=== PATIENT | female | born 1930 | race Caucasian/White ===

== ENCOUNTER 2017-05-24 12:33 | Emergency (ER) | payer OTHER, BC ==
[~2017-05-24] VITALS: Ht 162.6 cm; Wt 77.1 kg
[2017-05-24] MEDS ORDERED: COZAAR 25 MG TA25 M1 PO (13:05)
[2017-05-24] MEDS ORDERED: LOVASTATIN 20 M20 MG PO (13:05)
[2017-05-24] MEDS ORDERED: CLONIDINE HCL0.2 M2 PO (13:05)
[2017-05-24 13:55] LABS: ABSOLUTE EOSINOPHILS 0.1 thou/uL (0.0-0.7); ABSOLUTE MONOCYTES 0.8 thou/uL (0.0-1.2); ABSOLUTE NEUTROPHILS 6.1 thou/uL (1.6-8.1); BASOPHILS 0.3 %; EOSINOPHILS 0.8 %; HEMATOCRIT 34.9 % (37.0-47.0); HEMOGLOBIN 12.2 gm/dL (12.0-15.0); LYMPHOCYTES 12.9 %; MCH 34.8 pg (26.0-34.0); MCHC 34.8 g/dL (28.0-37.0); MCV 99.9 fL (80.0-100.0); MONOCYTES 10.1 %; MPV 8.9 fl. (7.2-11.1); NUCLEATED RBCS 0 /100WBC; PLATELET COUNT* 168 thou/uL (150-400); POLYS 75.9 %; RDW-CV 13.3 % (10.5-14.5)
[2017-05-24 14:32] VITALS: BP 154/58
[2017-05-24 15:02] LABS: ESR (SEDRATE) 38 mm/hr (0-30)
== END 2017-05-24 14:48 | disposition home or self-care (01) ==
LOC: M.ERS 12:33
PROVIDERS: Nurse Practitioner Family
DX: M25.572 Pain in left ankle and joints of left foot (principal); I10 Essential (primary) hypertension; Z96.641 Presence of right artificial hip joint; Z96.651 Presence of right artificial knee joint

== ENCOUNTER 2019-06-24 15:31 | Emergency (ER) | payer OTHER ==
[~2019-06-24] VITALS: Ht 160 cm; Wt 81.7 kg
[~2019-06-24 15:31] MED LIST: CLONIDINE HCL0.2 M2 PO; COZAAR 25 MG TA25 M1 PO; LOVASTATIN 20 M20 MG PO
[2019-06-24 17:45] LABS: URINE BILIRUBIN NEGATIVE (Negative); URINE BLOOD TRACE (Negative); URINE COLOR YELLOW; URINE GLUCOSE-RANDOM NEGATIVE (Negative); URINE KETONES NEGATIVE (Negative); URINE LEUKOCYTES-REFLEX TRACE (Negative); URINE NITRITE-REFLEX NEGATIVE (Negative); URINE PROTEIN NEGATIVE (Negative); URINE SPECIFIC GRAVITY 1.015 (1.005-1.030); URINE UROBILINOGEN 0.2 E.U./dl (0.2-1.0)
[2019-06-24 17:47] LABS: URINE CLARITY HAZY
[2019-06-24 17:53] LABS: BACTERIA-REFLEX >30 Many /HPF (None Seen); CASTS None Seen /LPF (None Seen); SQUAMOUS 4-10 Moderate /LPF (0-3); URINE RBC 0-2 Rare /HPF (0-2); URINE WBC-REFLEX 6-15 Few /HPF (0-5)
[2019-06-24 17:54] LABS: CRYSTALS None Seen /LPF (None Seen)
[2019-06-24] MEDS ORDERED: KEFLEX250 M1 PO (18:05)
[2019-06-24 18:14] VITALS: BP 146/84
== END 2019-06-24 18:15 | disposition home or self-care (01) ==
LOC: M.ERS 15:31
PROVIDERS: Physician Assistant
DX: S01.01XA Laceration without foreign body of scalp, initial encounter (principal); N39.0 Urinary tract infection, site not specified; I10 Essential (primary) hypertension; Z96.641 Presence of right artificial hip joint; Z96.651 Presence of right artificial knee joint; W10.8XXA Fall (on) (from) other stairs and steps, initial encounter; Y93.89 Activity, other specified; Y92.89 Other specified places as the place of occurrence of the external cause; Y99.8 Other external cause status

== ENCOUNTER 2019-08-16 12:47 | Inpatient (IN) | payer OTHER ==
[~2019-08-16] VITALS: Ht 170.2 cm; Wt 90.5 kg
[~2019-08-16 12:47] MED LIST changes: +KEFLEX250 M1 PO
[2019-08-16 12:53] VITALS: BP 124/74
[2019-08-16 13:36] LABS: HEMATOCRIT 41.5 % (37.0-47.0); HEMOGLOBIN 14.5 gm/dL (12.0-15.0); MCV 99.9 fL (80.0-100.0); MPV 9.3 fl. (7.2-11.1); NUCLEATED RBCS 0 /100WBC; PLATELET COUNT* 201 thou/uL (150-400); RBC 4.16 mil/uL (4.20-5.00); RDW-CV 13.3 % (10.5-14.5); WBC 10.9 thou/uL (4.0-11.0)
[2019-08-16 13:41] LABS: URINE BILIRUBIN NEGATIVE (Negative); URINE BLOOD 1+ (Negative); URINE CLARITY CLEAR; URINE COLOR DARK YELLOW; URINE GLUCOSE-RANDOM NEGATIVE (Negative); URINE KETONES NEGATIVE (Negative); URINE LEUKOCYTES-REFLEX TRACE (Negative); URINE NITRITE-REFLEX NEGATIVE (Negative); URINE PROTEIN 1+ (Negative); URINE SPECIFIC GRAVITY >= 1.030 (1.005-1.030); URINE UROBILINOGEN 0.2 E.U./dl (0.2-1.0)
[2019-08-16 13:44] LABS: CALCIUM 9.1 mg/dL (8.5-10.1); CREATININE 1.1 mg/dL (0.6-1.3); POTASSIUM 3.9 mmol/L (3.5-5.1)
[2019-08-16 13:48] LABS: SQUAMOUS 4-10 Moderate /LPF (0-3)
[2019-08-16 13:49] LABS: BACTERIA-REFLEX >30 Many /HPF (None Seen); CRYSTALS None Seen /LPF (None Seen); HYALINE CASTS 4-10 Moderate /LPF (None Seen); MUCUS >6 Heavy strn/LPF (None Seen); URINE RBC 0-2 Rare /HPF (0-2); URINE WBC-REFLEX 6-15 Few /HPF (0-5)
[2019-08-16 13:50] LABS: AMP/METHAMP Negative (Negative); BARBITURATES Negative (Negative); BENZODIAZEPINES Negative (Negative); COCAINE Negative (Negative); METHADONE Negative (Negative); OPIATES Negative (Negative); PCP Negative (Negative); THC Negative (Negative)
[2019-08-16 13:56] LABS: ABSOLUTE LYMPHOCYTES 0.9 thou/uL (0.8-5.3); ABSOLUTE MONOCYTES 0.7 thou/uL (0.0-1.2); ABSOLUTE NEUTROPHILS 9.4 thou/uL (1.6-8.1); PLATELET ESTIMATE ADEQUATE
[2019-08-16 13:59] LABS: ALBUMIN 3.8 g/dL (3.4-5.0); TOTAL BILIRUBIN 1.2 mg/dL (<0.1-1.0); TOTAL PROTEIN 7.7 g/dL (6.4-8.2)
[2019-08-16 14:03] LABS: SALICYLATE < 2.8 mg/dL (2.8-20.0)
[2019-08-16 14:05] LABS: ACETAMINOPHEN < 2 ug/mL (10-30); ALCOHOL < 10 mg/dL (<10)
[2019-08-16 16:34] LABS: URINE BILIRUBIN NEGATIVE (Negative); URINE BLOOD 1+ (Negative); URINE CLARITY CLEAR; URINE COLOR YELLOW; URINE GLUCOSE-RANDOM NEGATIVE (Negative); URINE KETONES NEGATIVE (Negative); URINE LEUKOCYTES-REFLEX NEGATIVE (Negative); URINE NITRITE-REFLEX NEGATIVE (Negative); URINE PROTEIN TRACE (Negative); URINE SPECIFIC GRAVITY >= 1.030 (1.005-1.030)
[2019-08-16 16:43] LABS: BACTERIA-REFLEX >30 Many /HPF (None Seen); CASTS None Seen /LPF (None Seen); CRYSTALS None Seen /LPF (None Seen); MUCUS >6 Heavy strn/LPF (None Seen); SQUAMOUS 4-10 Moderate /LPF (0-3); URINE RBC 0-2 Rare /HPF (0-2); URINE WBC-REFLEX 0-5 Rare /HPF (0-5)
--- NOTE | 2019-08-16 17:15 | NUR ---
MRI QUESTIONAIRRE PROVIDED TO PT
--- NOTE | 2019-08-16 18:31 | NUR ---
PT'S NIECE REQUESTS FOR PHONE CALL WHEN PT IS PROVIDED ROOM. PT PROVIDED PERMISSION FOR NIECE TO BE SPOKEN TO. NIECE IS SANTOSH ELIZONDO (BETSY) AT [phone].
[2019-08-16 20:00] VITALS: BP 159/68
[2019-08-16 20:06] VITALS: BP 111/47
[2019-08-17] VITALS (7 sets, daily range): BP systolic 92–145; BP diastolic 43–94
--- NOTE | 2019-08-17 02:43 | NUR ---
PT ALERT ORIENTED TO SELF AND PLACE OTHERWISE CONFUSED TO SITUATION AND TIME. FORGETFUL OF RECENT EVENTS. PT DOES NOT REMEMBER MEDICATIONS SHE IS ON. KLARISSA PERKINS CALLED AND MEDICATIONS CONFIRMED WITH KLARISSA. TELEMETRY SHOWS SR. ORTHO BPS DONE AND DOCUMENTED. NS AT 100MLS/HR. SL D/C PER PT. NEW SL STARTED IN R FA. UP TO BR WITH ASSIST OF ONE.
[2019-08-17 04:54] LABS: HEMATOCRIT 31.9 % (37.0-47.0); MCH 34.6 pg (26.0-34.0); MCHC 34.8 g/dL (28.0-37.0); MCV 99.4 fL (80.0-100.0); MPV 8.8 fl. (7.2-11.1); RBC 3.21 mil/uL (4.20-5.00); RDW-CV 13.2 % (10.5-14.5); WBC 5.6 thou/uL (4.0-11.0)
[2019-08-17 05:11] LABS: ALBUMIN 2.6 g/dL (3.4-5.0); CREATININE 0.7 mg/dL (0.6-1.3); HEMOGLOBIN 11.1 gm/dL (12.0-15.0); MAGNESIUM 1.6 mg/dL (1.8-2.4); PHOSPHORUS* 2.9 mg/dL (2.5-4.9); POTASSIUM 3.5 mmol/L (3.5-5.1)
--- NOTE | 2019-08-17 09:03 | EKG ---
[place] [address] ELECTROCARDIOGRAM REPORT Name: JOHN CULLEN Room: [address] ADM IN M.R.#: [id number] Admission: 08/16/19 Attend Phys: Diego zapata Sa Discharge: Date of : 34 Date of Service: 08/16/19 1331 Report #: [id number] THIS REPORT FOR: //name// [facility] ED Test Date: 2019-08-16 Test Time: 13:31:43 Pat Name: JOHN CULLEN Department: Room: [facility] Gender: F Plating Engineer: YASHIRA : 1930 Requested By: Ted Mckeon Order Number: [id number] MD: Wilberto Knox Measurements Intervals [place] Rate: 76 P: 47 DC: 170 QRS: -28 QRSD: 93 T: 6 QT: 418 QTc: 471 Interpretive Statements Sinus rhythm Borderline left axis deviation Abnormal R-wave progression, early transition Compared to ECG 02/04/2006 09:29:54 No significant changes Electronically Signed On 08-17-2019 9:02:21 CDT by Wilberto Knox [email or web address] <ELECTRONICALLY SIGNED> By: Wilberto Knox MD, [facility] 08/17/19 0902 1331 1331 Wilberto Knox MD, [facility] /EPI
--- NOTE | 2019-08-17 15:57 | NUR ---
SW met with pt to complete initial assessment, introduce self, and SW role. Pt santa Schilling came in during the assessment and spoke with SW after assessment as well. Pt said that she lives at home alone but that she has a nurse who lives in a rental house behind her and that she has neighbors who are supportive. Pt has RW, hx of HH but pt did not prefer the HH services. Pt stated that she did not see any problems with her abilities and dc home when ready to dc. Pt santa Schilling spoke with SW in the hallway and clarified that pt neighbors are "not exactly helpful". And that pt doesn't eat or drink properly, hx confusion and multiple falls. SW spoke with Dr Burdick who plans to order tele psych and evaluate pt capacity and competency. SW to continue to follow to assist with safe dc planning.
[2019-08-18] VITALS: BP 117/55
[2019-08-18 08:00] VITALS: BP 136/67
[2019-08-18 12:00] VITALS: BP 121/63
[2019-08-18 15:55] VITALS: BP 143/59
--- NOTE | 2019-08-18 16:55 | NUR ---
GABRIELA discussed dc planning with Dr Burdick who recommends LTC placement and planned to order tele psych. DPOA to go into effect with neuro and hospitalist deeming pt incapacitated at this time due to advanced dementia. GABRIELA spoke with pt niece who was grateful for the assistance in finding placement for pt and the family first choice is [facility]. GABRIELA called admissions at but they do not have any beds available. GABRIELA sent referrals to other options in pt/family preferred area: [facility], [facility] and [facility] [place]. GABRIELA will follow up with referrals and assist with dc placement.
--- NOTE | 2019-08-18 18:44 | NUR ---
PT. AOX4, DENIES PAIN, SB IN LOW 40-50, STABLE. PT. FAMILY VISITED. PT. OOB TO CHAIR, TOLERATED WITHOUT DIFFICULTY. ASSISTED/ENCOURAGED PT TO EAT. HOURLY ROUNDING PERFORMED. CALL LIGHT AND PERSONAL BELONGINGS PLACED WITHIN REACH. PT. IN BED, WATCHING TV AT THIS TIME, IN NO APPARENT DISTRESS.
[2019-08-18 19:50] VITALS: BP 133/70
[2019-08-19 00:08] VITALS: BP 108/41
[2019-08-19 04:14] VITALS: BP 135/63
--- NOTE | 2019-08-19 04:54 | NUR ---
PT CARE ASSUMED AT 1930. SAT MAINTAINED IN RA. ALERT AND ORIENTED X 3 BUT FORGETFUL. C/O PAIN, MEDICTAION GIVEN PER EMAR. DENIES SOB. CALL LIGHT WITHIN REACH AND BED IN LOW POSITION. HOURLY ROUNDING DONE FOR PT SAFETY.
[2019-08-19 05:36] LABS: HEMATOCRIT 32.4 % (37.0-47.0); HEMOGLOBIN 11.4 gm/dL (12.0-15.0); MCH 35.1 pg (26.0-34.0); MCV 100.2 fL (80.0-100.0); MPV 9.7 fl. (7.2-11.1); RBC 3.24 mil/uL (4.20-5.00); RDW-CV 13.3 % (10.5-14.5); WBC 4.9 thou/uL (4.0-11.0)
[2019-08-19 05:51] LABS: ALBUMIN 2.6 g/dL (3.4-5.0); CREATININE 0.7 mg/dL (0.6-1.3); MAGNESIUM 1.6 mg/dL (1.8-2.4); POTASSIUM 3.5 mmol/L (3.5-5.1); TOTAL BILIRUBIN 0.6 mg/dL (<0.1-1.0); TOTAL PROTEIN 5.6 g/dL (6.4-8.2)
[2019-08-19 09:00] VITALS: BP 147/64
--- NOTE | 2019-08-19 09:00 | NUR ---
ASSUMED PT. CARE AND RECEIVED REPORT AT 0730. PT A/OX TO SELF/PLACE, SOME CONFUSION NOTED, REPEATIVE STORIES. PT. VSS, MONITOR ON TRACING SB. FULL ASSESSMENT COMPLETED, REFER TO CHARTING. PT. MILTONICE INTO VISIT, DISCUSSED TELE PSYCH CONSULT AND CM CONTACTED FOR MEETING. CALL LIGHT IN REACH, FALL PRECAUTIONS IN PLACE. WILL CONTINUE WITH PLAN OF CARE.
--- NOTE | 2019-08-19 11:16 | NUR ---
liliana f/u w/pt's renu/amanda who was at pt's beside to inform her [facility] not have capacity. [facility] wont know about capacity until after covid 19 result come in (prob Thursday), liliana sent referral to [facility] (which is renu's first choice d/t pt having a friend there), and liliana left [facility] for an update.
[2019-08-19 13:22] VITALS: BP 111/75
--- NOTE | 2019-08-19 16:14 | NUR ---
CM faxed referral to [facility], [facility], [facility], and [facility]
--- NOTE | 2019-08-19 16:29 | NUR ---
[facility] is full and has to remain full with same pts for 28 days due to covid precautions. [facility] does not have memory care available. Other referrals are pending and SW to continue to follow to assist with safe dc planning and placement as soon as accepting facility.
[2019-08-19 17:39] VITALS: BP 144/57
[2019-08-19 18:56] LABS: % SATURATION 34 % (20-39); IRON 63 ug/dL (50-175)
[2019-08-20] VITALS: BP 142/68
--- NOTE | 2019-08-20 05:21 | NUR ---
PT CARE ASSUMED AT 1930. SAT MAINTAINED IN RA. PT IS CONFUSED. DENIES PAIN AND SOB. CALL LIGHT WITHIN REACH AND BED IN LOW POSITION. HOURLY ROUNDING DONE FOR PT SAFETY.
[2019-08-20 05:48] LABS: HEMATOCRIT 31.7 % (37.0-47.0); HEMOGLOBIN 11.2 gm/dL (12.0-15.0); MCH 35.1 pg (26.0-34.0); MCHC 35.4 g/dL (28.0-37.0); MCV 99.2 fL (80.0-100.0); MPV 9.3 fl. (7.2-11.1); RBC 3.2 mil/uL (4.20-5.00); RDW-CV 13.3 % (10.5-14.5)
[2019-08-20 05:58] LABS: ALBUMIN 2.7 g/dL (3.4-5.0); CALCIUM 8.5 mg/dL (8.5-10.1); CREATININE 0.7 mg/dL (0.6-1.3); MAGNESIUM 1.8 mg/dL (1.8-2.4); PHOSPHORUS* 3.2 mg/dL (2.5-4.9); POTASSIUM 3.5 mmol/L (3.5-5.1)
[2019-08-20 08:00] VITALS: BP 157/72
[2019-08-20 13:17] VITALS: BP 123/72
--- NOTE | 2019-08-20 14:16 | NUR ---
PT VS CHARTED, A&O TO PERSON AND PLACE- FORGETFUL AND CONFUSED AT BASELINE, SB ON TELE, SBA TO COMMODE, FALL AT HOME PRIOR TO ADMIT- HIGH FALL RISK, HOURLY ROUNDING PERFORMED, POSSESSIONS AND CALL LIGHT WITHIN REACH. WAITING ON SKILLED FACILITY PLACEMENT
[2019-08-20 16:00] VITALS: BP 142/64
[2019-08-20 20:10] VITALS: BP 144/67
[2019-08-21] VITALS: BP 131/63
[2019-08-21 04:00] VITALS: BP 156/84
--- NOTE | 2019-08-21 06:11 | NUR ---
PT CARE ASSUMED AT 1930. PT IS CONFUSED. DENIES PAIN AND SOB. CALL LIGHT WITHIN REACH AND BED IN LOW POSITION. HOURLY ROUNDING DONE FOR PT SAFETY.
[2019-08-21 09:07] VITALS: BP 166/75
--- NOTE | 2019-08-21 12:40 | NUR ---
PT HAS BEEN IN BED T/O DAY POOR APPETITE DENIES PAIN ALERT AND ORIENTED X2-3 FORGETFUL NEEDS REMINDERS FAMILY AT BEDSIDE UP TO BSC CALL LIGHT IN REACH
[2019-08-21 13:36] VITALS: BP 160/68
[2019-08-21 17:21] VITALS: BP 147/43
--- NOTE | 2019-08-21 18:20 | NUR ---
PT WAS ALERT AND ORIENTED TO SELF, PLACE, AND AT TIMES SITUATION. CONSTANT REMINDERS NEEDED, IMPULSIVE AT TIMES AND TRIES TO GET OUT OF BED
[2019-08-21 20:00] VITALS: BP 114/53
--- NOTE | 2019-08-21 20:00 | NUR ---
RECEIVED REPORT AND ASSUMED CARE OF PT, ASSESSMENT COMPLETED. PT CONFUSED BUT COOPERATIVE. NO COMPLAINTS VOICED. TELEMETRY ON SHOWING SA TO SB. WILL CONT TO MONITOR AND ASSIST NEEDED.
[2019-08-22] VITALS (8 sets, daily range): BP systolic 101–151; BP diastolic 35–67
--- NOTE | 2019-08-22 06:04 | NUR ---
AWAKE MOST OF NIGHT ASKING TO GO HOME. PT ORIENTED TO SELF ONLY. ASSISTED TO BSC, VOIDING WITHOUT DIFFICULTY. NO CHANGE IN ASSESSMENT. TELEMETRY SHOWING SB. HS GOALS OF REST AND SAFETY ACHIEVED. HOURLY ROUNDING OBSERVED.
[2019-08-22] MEDS ORDERED: SERTRALINE HCL50 MG PO (09:37)
[2019-08-22] MEDS ORDERED: ADVIL LIQUI-GE200 MG PO (09:37)
--- NOTE | 2019-08-22 10:10 | NUR ---
PT IN BED THIS AM, YELLING OUT FOR DIFFERENT THINGS CONFUSED, BUT ALERT AND ORIENTED TO PERSON, PLACE, AND SOME SITUATION. VERY FORGETFUL NEEDS CONSTANT REMINDERS. VERY POOR APPETITE. DENIES PAIN. INCREASED EXP. WHEEZING NOTED. RA 96% BREATHING TX CONTINUE. SBA TO MIN ASSIST TO BSC. CALL LIGHT IN REACH BUT DOESN'T ALWAYS USE.
--- NOTE | 2019-08-22 17:07 | NUR ---
SW received call from [facility] stating that they did not have a memory care unit and they are not in network with pt insurance anyway even for SNF if that was an option. [facility] not have any beds available. SW trying more referrals; [facility] and [facility], [place], maybe [facility] for SNF but they do not have LTC beds available and following up on other referrals that have not contacted back about placement: [facility], [facility]. GABRIELA spoke with pt santa Schilling who was upset because she thought pt was going to dc today and she had taken the day off of work to "sit here". (Pt nivitaliy also dealing with her own mother having issues.) GABRIELA explained that while pt is medically ready to dc from the hospital, SW has been sending referrals and trying for placement all week with no accepting facilities yet. GABRIELA reminded how CM had spoken with pt santa about referrals and preferences since Thursday, and again on Thursday. GABRIELA provided pt niece direct phone number to call at any point as pt nivitaliy felt she hadn't been contacted enough, GABRIELA encouraged her to call with any questions but that SW would definitely call with placement updates and continue to follow to assist with finding placement as soon as possible.
--- NOTE | 2019-08-22 18:47 | NUR ---
PT IMPULSIVE TOWARDS THE END OF SHIFT BECOMES CONFUSED URINATED X3 WITHIN AN HOUR TIME PT CONFUSED AND AGITATED WITH HERSELF "I WAS NEVER LIKE THIS BEFORE. I CAN'T REMEMBER ANYTHING!" REASSURANCE GIVEN DENIES PAIN BRENNAN TALKED WITH CM TODAY ABOUT FINDING PLACEMENT CALL LIGHT IN REACH
[2019-08-23 00:45] VITALS: BP 150/61
--- NOTE | 2019-08-23 03:37 | NUR ---
ASSUMED CARE OF PT AT 1900. PT IS CONFUSED. VSS. PERKYLIE. NO COMPLAINTS OF PAIN. PT IS IN SINUS RYTHM ON THE TELEMETRY. PT IS RESTING COMFORTABLY IN BED. RESPIRATIONS ARE EVEN AND NONLABORED. WILL CONTINUE TO MONITOR PT.
[2019-08-23 05:25] VITALS: BP 109/44
[2019-08-23 08:46] VITALS: BP 127/53
--- NOTE | 2019-08-23 11:15 | NUR ---
PT IS UP IN CHAIR THIS MORNING PT IS ALERT AND ORIENTED X2 CONFUSED DID NOT SLEEP DURING NIGHT PER HS SHIFT DENIES PAIN UP TO BSC SOME ODOR NOTED WITH URINATION STILL WAITING ON DISCHARGE CALL LIGHT IN REACH
[2019-08-23 12:22] VITALS: BP 110/50
[2019-08-23 16:31] VITALS: BP 128/57
--- NOTE | 2019-08-23 16:34 | NUR ---
GABRIELA followed up with pt santa about placement options and no facilities accepting yet. Pt niece said she spoke with Deborah who will also help pt niece with placement options. GABRIELA following up with referral and sending more as needed: [facility] [place]: pending response [facility]: [facility] available [facility]: not able to accept [facility]: pending response [facility]: pending [facility]: to follow up [facility]: no LTC beds available [facility]: no LTC beds available [facility]: not in network with [facility]
[2019-08-23 18:58] LABS: URINE BILIRUBIN NEGATIVE (Negative); URINE BLOOD NEGATIVE (Negative); URINE CLARITY CLEAR; URINE COLOR YELLOW; URINE GLUCOSE-RANDOM NEGATIVE (Negative); URINE KETONES NEGATIVE (Negative); URINE LEUKOCYTES-REFLEX NEGATIVE (Negative); URINE NITRITE-REFLEX NEGATIVE (Negative); URINE PROTEIN NEGATIVE (Negative)
[2019-08-23 19:50] VITALS: BP 146/52
[2019-08-24] VITALS: BP 124/62
--- NOTE | 2019-08-24 03:11 | NUR ---
ASSUMED CARE OF PT AT 1900. PT IS CONFUSED AND IMPULSIVE AT TIMES. VSS. PERRLA. NO COMPLAINTS OF PAIN. UP WITH STAND BY ASSIST. PT IS SLEEPING QUIETLY IN BED. RESPIRATIONS ARE EVEN AND NONLABORED. WILL CONTINUE TO MONITOR PT.
[2019-08-24 04:00] VITALS: BP 145/67
[2019-08-24 07:44] VITALS: BP 101/68
--- NOTE | 2019-08-24 12:39 | EEG ---
[address] [address] EEG STUDY REPORT Name: JOHN CULLEN Room: [address] IN M.R.#: [id number] Admission: 08/16/19 Attend Phys: Diego Tierney Discharge: Date of : 34 Report #: [id number] THIS REPORT FOR: //name// CC: Diego Dixon DATE OF SERVICE: 08/18/2019 This patient is being evaluated for altered mental status. EEG was done by placing the electrode by standard 10-20 system of electrode placement. Both referential and sequential montages were used for recording. Background activity in this patient's EEG is about 8-9 Hz and 15 microvolt. The patient went to sleep and that is associated with bilateral slowing and vertex sharp waves. Photic stimulation was unremarkable. Throughout the record, no active epileptiform activity was noticed. IMPRESSION: This patient's EEG is intermixed with slowing on both sides. That is a nonspecific abnormality, which can occur with encephalopathy, effect of psychotropic medication, dementia, etc. Clinical correlation is recommended. <ELECTRONICALLY SIGNED> By: John Koehler MD 08/24/19 1239 1233 [id number] Koehler MD /nt
--- NOTE | 2019-08-24 12:39 | CON ---
[address] [address] CONSULTATION Name: JOHN CULLEN Room: [address] ADM IN M.R.#: [id number] Admission: 08/16/19 Attend Phys: Diego Tierney Discharge: Date of : 34 Report #: [id number] THIS REPORT FOR: //name// cc: Remedios Wilkes MD, Ghazal A. MD ~ THIS REPORT FOR: //name// CC: Diego Dixon DATE OF SERVICE: 08/17/2019 HISTORY OF PRESENT ILLNESS: This is an 89-year-old female patient who was evaluated by me for altered mental status. The patient does not believe anything wrong with her and she is at her baseline. All the records were reviewed and I talked to the nurses looking after this patient. The patient lives independently. I do not know how long it is going. She keeps repeating things and she apparently tripped and did not hit her head and is having problem with the hip. 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 This is all the history I can get from her, but I reviewed all the records REVIEW OF SYSTEMS: Not positive for any dementia. It is not clear how much she drinks alcohol. She lives alone. I do not know how to get more history. PAST MEDICAL HISTORY: Negative for stroke according to her. I spent a lot of time with her, but I am not sure if she understands all those things and it was very difficult to get a history. SOCIAL HISTORY: One of the notes says that she was asking for alcohol, but she says she does not drink any alcohol, so that makes it confusing. PHYSICAL EXAMINATION: GENERAL: Indicate that she is alert. NEUROLOGIC: She will tell you one thing, but then she will repeat the same thing. She does not know what month, what year, or what hospital she is in. Cranial nerve examination and neuromuscular examination was noncontributory. VITAL SIGNS: Blood pressure is 143/94, pulse is 98, temperature is 98.4. IMAGING: CT scan of the head does not show any acute abnormality. LABORATORY DATA: Indicated normal white count and sodium. No respiratory difficulty was noticed. IMPRESSION: It is not clear what the etiology of this patient's symptom is. From clinical indication, it looks like it is dementia. [place] [address] CONSULTATION Name: JOHN CULLEN Room: [address] IN [facility]#: [id number] Admission: 08/16/19 Attend Phys: Diego Tierney Discharge: Date of : 34 Report #: [id number] drinking more alcohol than she tells us. It is possible that she has dementia, but is able to get by with it. It looks like the family wants her to go to assisted living and that is desirable thing to do in this patient. DISCUSSION: I tried to discuss this with the patient, but I do not think she understands. I will try to reach the family and/or durable power of dental hygiene teacher and see what they will like to do. I spent about 50 minutes of time taking care of this patient today and majority of that time was spent counseling and coordinating. <ELECTRONICALLY SIGNED> By: John Koehler MD 08/24/19 1239 [id number] Koehler MD /nt
--- NOTE | 2019-08-24 12:41 | NUR ---
ASSUMED CARE OF PT AROUND 0730 THIS AM. REFER TO ASSESSMENT. CASE MANAGEMENT TO ARRANGE FOR DC PLANNING. PT'S NIECE AT BEDSIDE. PT TRANSFERING TO MED/SURG UNIT. WILL GIVE REPORT TO RECEIVING RN. NO OTHER CONCERNS AT THIS TIME. CLWR. WCTM.
[2019-08-24 14:04] VITALS: BP 132/68
--- NOTE | 2019-08-24 16:24 | NUR ---
GABRIELA met with pt and pt santa about dc planning and possibility for [facility]. The facility is willing to accept and started insurance auth. SW faxed updated therapy notes. SW to continue to follow.
--- NOTE | 2019-08-24 16:42 | NUR ---
PATIENT HAS BEEN RESTING QUIETLY SINCE COMING UP TO ROOM 305. SHE CONTINUES TO DENY DISCOMFORT OR ANY NEEDS OR WANTS. WE DID CALL TO GET HER TV FIXED AND IT IS WORKING NOW. SHE IS WAITING FOR SUPPER AT THIS TIME. NO DISTRESS NOTED. SAFETY PRECAUTIONS MAINTAINED.
[2019-08-24 17:59] VITALS: BP 138/70
[2019-08-24 19:32] VITALS: BP 127/59
--- NOTE | 2019-08-25 05:54 | NUR ---
PT A&O, ON ROOM AIR, VSS, PT ON CPAP, PT TURNED Q2H, HOURLY ROUNDINGS COMPLETED. WILL CONTINUE TO MONITOR.
--- NOTE | 2019-08-25 09:37 | NUR ---
GABRIELA called admissions at [facility] and she was on hold with Joba to follow up on need for auth for SNF. She called back to inform that they approved and provided auth and arranged transport for 1 pm. Pt nurse aware. GABRIELA called pt santa Schilling "Ryann" and discussed finalized dc plan; she is okay with plan. Chart to be copied for continuation of care. Faxed dc summary to [facility] [place]. ph [phone] fax [phone]
[2019-08-25 09:59] VITALS: BP 146/54
[2019-08-25 12:43] VITALS: BP 146/54
--- NOTE | 2019-08-25 15:11 | NUR ---
I ASSUMED CARE OF THE PATIENT AT 0700. SHE IS ALERT AND ORIENTED TO SELF AND TIME. SHE HAS DEMENTIA. BED IS IN THE LOW LOCKED POSITION AND CALL LIGHT IS IN REACH. BED ALARM IS ON. SHE IS UP WITH ONE TO THE COMMODE. HOURLY ROUNDING WAS COMPLETED AND PATIENT NEEDS WERE MET. SHE DENIES PAIN. DAILY LABS WERE WNL. SHE WAS REPOSITIONED EVERY 2 HOURS. HER NIECE WAS AT THE BEDSIDE PART OF THE AFTERNOON AND SHE WAS DISCHARGED TO [facility] WITH TRANSPORTATION ARRIVING AT 1300. SHE WAS DRESSED AND TOILETED PRIOR TO DISCHARGE. HER NIECE TOOK ALL OF HER BELONGINGS. I ATTEMPTED TO CALL REPORT, BUT THERE WAS NO ANSWER. COVID SWAB WAS COMPLETED AND CAME BACK NEGATIVE. SHE DIDN'T HAVE A BOWEL MOVEMENT, THEREFORE AN OCCULT SAMPLE WAS NOT SENT.
== END 2019-08-25 13:15 | DRG 71 ==
LOC: M.ERS 12:47 → M.TBA-ER 15:40 → M.2W 15:40 → M.3W 08-24 13:07
PROVIDERS: Internal Medicine; Physician Assistant; ADMIT Family Medicine; ATTEND Family Medicine
DX: G93.41 Metabolic encephalopathy (principal); M62.82 Rhabdomyolysis; F03.91 Unspecified dementia, unspecified severity, with behavioral disturbance; F05 Delirium due to known physiological condition; I10 Essential (primary) hypertension; Z96.641 Presence of right artificial hip joint; Z96.651 Presence of right artificial knee joint; M25.551 Pain in right hip; E83.42 Hypomagnesemia; D64.9 Anemia, unspecified; S70.01XA Contusion of right hip, initial encounter; Z66 Do not resuscitate; S06.0X0A Concussion without loss of consciousness, initial encounter; W01.0XXA Fall on same level from slipping, tripping and stumbling without subsequent striking against object, initial encounter; Y93.A3 Activity, aerobic and step exercise; Z79.899 Other long term (current) drug therapy; Y92.128 Other place in nursing home as the place of occurrence of the external cause; Z91.81 History of falling; Y99.8 Other external cause status; M16.11 Unilateral primary osteoarthritis, right hip; Z03.818 Encounter for observation for suspected exposure to other biological agents ruled out